=== PATIENT | male | born 1975 | race Caucasian/White ===

== ENCOUNTER 2020-06-27 18:21 | Emergency (ER) | payer BC ==
--- NOTE | 2020-06-27 20:51 | ER Document Report ---
ED Medical Screen (RME) - General Chief Complaint: Blood Pressure Problem Stated Complaint: HIGH BLOOD PRESSURE Time Seen by Provider: 06/27/20 20:48 Primary Care Provider: MARIA M QUINTERO PA-C [Primary Care Provider] - Follow up as needed Notes: Patient is a 45-year-old male with a history of hypertension who presents to the emergency department with a chief complaint of elevated blood pressure. Patient reports that he did speak with his primary care physician today who did increase the dosage of his lisinopril. He normally takes 20 mg/day which is been his dose for the past few years. Noticed that his blood pressures been elevated over the past week or so. She did increase the dosage to 40 mg/day which he did not start yet. His last dose of lisinopril was 20 mg at 1 PM this afternoon. He normally takes 20 mg at night. States he has a headache with his elevated blood pressure as well as right-sided neck pain. He reports the neck pain is been present for 1 week. TRAVEL OUTSIDE OF THE [place] IN LAST 30 DAYS: No - Related Data Allergies/Adverse Reactions: No Known Allergies Allergy (Unverified 06/27/20 20:34) Past Medical History - Social History Chew tobacco use (# tins/day): No Frequency of alcohol use: None Physical Exam - Vital signs Vitals: Temp 97.8 F 06/27/20 18:22 Course - Re-evaluation Re-evalutation: 06/27/20 20:50 Patient no acute distress. Blood pressure is in the 150s systolic. Patient speech is clear and appropriate. Patient is mentating normally. I have greeted and performed a rapid initial assessment of this patient. A comprehensive ED assessment and evaluation of the patient, analysis of test results and completion of the medical decision making process will be conducted by additional ED providers. - Vital Signs Vital signs: Temp Pulse Resp BP Pulse Ox 98.2 F 85 16 151/109 H 96 06/27/20 18:57 06/27/20 20:42 06/27/20 20:42 06/27/20 20:42 06/27/20 20:42 Doctor's Discharge - Discharge Referrals: MARIA M QUINTERO PA-C [Primary Care Provider] - Follow up as needed
[2020-06-27 21:33] LABS: ABSOLUTE EOSINOPHILS # (AUTO) 0.1 10^3/uL (0.0-0.6); ABSOLUTE LYMPHOCYTES (AUTO) 2.2 10^3/uL (0.5-4.7); ABSOLUTE MONOCYTES (AUTO) 0.5 10^3/uL (0.1-1.4); ABSOLUTE NEUT (AUTO) 4.5 10^3/uL (1.7-8.2); BASOPHILS % (AUTO) 0.6 % (0-2); HEMATOCRIT 46.5 % (37.9-51.0); HEMOGLOBIN 16.1 g/dL (13.5-17.0); LYMPHOCYTES % (AUTO) 29.8 % (13-45); MEAN CORPUSCULAR HEMOGLOBIN 29.3 pg (27.0-33.4); MEAN CORPUSCULAR HGB CONC 34.6 g/dL (32.0-36.0); MEAN CORPUSCULAR VOLUME 85 fl (80-97); MONOCYTES % (AUTO) 7.5 % (3-13); PLATELET COUNT 269 10^3/uL (150-450); RED BLOOD COUNT 5.49 10^6/uL (4.35-5.55); RED CELL DISTRIBUTION WIDTH 13.3 % (11.5-14.0); SEGMENTED NEUTROPHILS % (AUTO) 61.1 % (42-78); TOTAL CELLS COUNTED % (AUTO) 100 %; WHITE BLOOD COUNT 7.3 10^3/uL (4.0-10.5)
--- NOTE | 2020-06-27 21:34 | RADIOLOGY REPORT (SQ) ---
CLINICAL INDICATION: Right sided neck pain, elevated blood pressure. TECHNIQUE: PA and lateral views were obtained of the chest COMPARISON: None. FINDINGS: The cardiomediastinal silhouette is normal. The lungs are grossly clear. No evidence of effusion or pneumothorax. Visualized bones are unremarkable. . IMPRESSION: No evidence of active intrathoracic disease .
--- NOTE | 2020-06-27 21:37 | EKG REPORT ---
SEVERITY:- ABNORMAL ECG - SINUS RHYTHM BASELINE ARTIFACT.PROBABLY NORMAL EKG : Confirmed by: Kathie Nagel MD 27-Jun-2020 21:36:07
[2020-06-27 21:50] LABS: ALBUMIN 4.7 g/dL (3.5-5.0); ALKALINE PHOSPHATASE 86 U/L (38-126); ANION GAP 10 (5-19); ASPARTATE AMINO TRANSFERASE 20 U/L (17-59); BILIRUBIN,DIRECT 0.3 mg/dL (0.0-0.4); BILIRUBIN,TOTAL 0.6 mg/dL (0.2-1.3); BLOOD UREA NITROGEN 7 mg/dL (7-20); CALCIUM 9.4 mg/dL (8.4-10.2); CARBON DIOXIDE 26 mmol/L (22-30); CHLORIDE 107 mmol/L (98-107); GLUCOSE 100 mg/dL (75-110); POTASSIUM 4.2 mmol/L (3.6-5.0); TOTAL PROTEIN 7.5 g/dL (6.3-8.2)
--- NOTE | 2020-06-28 00:23 | ER Document Report ---
ED General - General Chief Complaint: Blood Pressure Problem Stated Complaint: HIGH BLOOD PRESSURE Time Seen by Provider: 06/27/20 20:48 Primary Care Provider: MARIA M QUINTERO PA-C [Primary Care Provider] - 06/30/20 TRAVEL OUTSIDE OF THE [place] IN LAST 30 DAYS: No - HPI Context: This is a 45-year-old male with a history of hypertension presenting to the emergency department today complaining of elevated blood pressure, fatigue and right-sided neck pain for approximately 1 week. Patient states he has been on 20 mg of lisinopril for several years now. Patient states he is noticed that he is had lately a sense of fatigue, weakness, occasional headaches not alleviated with aspirin. Patient states he is checked his blood pressure at home with a home blood pressure machine and states that the pressure is reading up to the 160s systolic at times. Patient states that he is not completely sure how reliable the blood pressure monitor is because sometimes he can get markedly different readings within 10 minutes of the original reading. Patient states he is mainly concerned that the fact his blood pressures been elevated and the fact that he is having neck pain may be related. Patient states that he spoke to his primary care provider earlier today and his provider stated that she would be increasing his lisinopril to 40 mg daily. She stated that he could take the 20 mg dose he usually takes at night sooner. Patient did this at approximately 1300 hrs. today. Patient was planning on taking the second dose of 20 mg tonight as he has in the past at bedtime. Patient states that he has not picked up his new prescription yet. Patient states that he just became worried about the possibility of something in his neck been associated with his blood pressure. Patient denies exceptional strenuous activity within the past 2 weeks. Patient states that his neck pain is basically right-sided and he localizes it in the region of his trapezius muscle. Patient states the pain is aching and rates it as a 3 out of 5. Patient states that the pain is worsened if he tilts his head to the left away from the right trapezius. Patient denies current headache, visual changes, nausea and vomiting, trouble with speech, difficulty with gait, chest pain or shortness of breath. Patient denies fever, chills, history of COVID-19 infection, recent contact with known positive COVID- 19 persons or persons under investigation per COVID. Associated symptoms: Other - See HPI Exacerbated by: Other - See HPI Relieved by: Other - See HPI - Related Data Allergies/Adverse Reactions: No Known Allergies Allergy (Unverified 06/27/20 20:34) Past Medical History - General Information source: Patient - Social History Smoking Status: Unknown if Ever Smoked Chew tobacco use (# tins/day): No Frequency of alcohol use: None Family History: Reviewed & Not Pertinent Patient has suicidal ideation: No Patient has homicidal ideation: No - Past Medical History Cardiac Medical History: Reports: Hx Hypertension Review of Systems - Review of Systems Constitutional: Weakness EENT: No symptoms reported Cardiovascular: No symptoms reported Respiratory: No symptoms reported Gastrointestinal: No symptoms reported Genitourinary: No symptoms reported Male Genitourinary: No symptoms reported Musculoskeletal: Neck pain Skin: No symptoms reported Hematologic/Lymphatic: No symptoms reported Neurological/Psychological: Headaches -: Yes All other systems reviewed and negative Physical Exam - Vital signs Vitals: Temp 97.8 F 06/27/20 18:22 - Notes Notes: CONSTITUTIONAL [Vital signs reviewed, Patient appears comfortable, Alert and oriented X 3, Normal stature.] HEAD [Atraumatic, Normocephalic.] EYES [Eyes are normal to inspection, No discharge from eyes, Extraocular muscles intact, Sclera are normal, Conjunctiva are normal. Pupils are equally round and reactive bilaterally] NECK [Patient's right trapezius is positive for moderate muscle spasm and tenderness to palpation, left trapezius by comparison feels supple. No jugular venous distention, No meningeal signs, no carotid bruit. There is no anterior neck swelling.] RESPIRATORY CHEST [Chest is nontender, Breath sounds normal, No respiratory distress.] CARDIOVASCULAR [RRR, No murmurs, Normal S1 S2, No rub, No gallop.] ABDOMEN [Abdomen is nontender, No pulsatile masses, No other masses, Bowel sounds normal, No distension, No peritoneal signs, No hernias.] BACK [There is no CVA Tenderness, There is no tenderness to palpation, Normal inspection.] UPPER EXTREMITY [Inspection normal, No cyanosis, No clubbing, No edema, 2+ radial pulses.] LOWER EXTREMITY [Inspection normal, No cyanosis, No clubbing, No edema, No calf tenderness, 2+ femoral pulses.] NEURO [No focal motor deficits, No focal sensory deficits, Speech normal.] SKIN [Skin is warm, Skin is dry, Skin is normal color.] LYMPHATIC [No adenopathy in neck.] PSYCHIATRIC [Normal affect. ] Course - Re-evaluation Re-evalutation: 06/28/20 00:27 Results of ED MSE discussed with patient. This MD offered to give patient the additional dose of lisinopril he is supposed to take this evening. Patient states he will just take his additional 20 mg dose of lisinopril when he gets home. All questions were answered prior to discharge. Emergency signs and symptoms, reasons to return to the emergency department discussed with patient. - Vital Signs Vital signs: Temp Pulse Resp BP Pulse Ox 98.2 F 85 16 151/109 H 96 06/27/20 18:57 06/27/20 20:42 06/27/20 20:42 06/27/20 20:42 06/27/20 20:42 - Laboratory Result Diagrams: 06/27/20 21:08 06/27/20 21:08 - Diagnostic Test Radiology reviewed: Reports reviewed - EKG Interpretation by Me Additional EKG results interpreted by me: 06/28/20 00:28 EKG obtained on 06/27/2020 at 2103 hrs. was interpreted by this MD. Findings: Normal sinus rhythm, rate 69, normal axis, RI interval appears within normal l imits, P waves preceding QRS complexes, QRS complexes appear narrow, QTC is 403, there is some baseline artifact in V1 and V2, otherwise there are no obvious patterns of ST segment elevation or depression present to suggest acute myocardial ischemia or infarction. Impression normal sinus rhythm with nonspecific ST segments. Discharge - Discharge Clinical Impression: Elevated blood pressure reading Strain of right trapezius muscle Qualifiers: Encounter type: initial encounter Qualified Code(s): S46.811A - Strain of other muscles, fascia and tendons at shoulder and upper arm level, right arm, initial encounter Condition: Stable Disposition: HOME, SELF-CARE Additional Instructions: Return to the Emergency Department without delay if any worse. 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 You can use cervical wraps for your right trapezius muscle strain as discussed. HOME CARE INSTRUCTIONS & INFORMATION: Thank you for choosing us for your medical needs. We hope you're satisfied with the care you received. After you leave, you must properly care for your problem and, at the same time, observe its progress. Any condition can change. Some illnesses can change rapidly over hours or days. If your condition worsens, return to the Emergency Department or see your physician promptly. ABOUT YOUR X-RAYS AND EKG'S: If you had an EKG or X-rays taken, they have been read by the Emergency Physician. The X-rays and EKG's will also be read by a Radiologist or Supervisor [employer] within 24 hours. If discrepancies are noted, you will be notified by telephone. Please be certain the ED has a correct telephone number & address where you can be reached. Also, realize that some fractures or abnormalities do not show up on initial X-rays. If your symptoms continue, see your physician. ABOUT YOUR LABORATORY TEST: If you had laboratory tests, the results have been reviewed by the Emergency Physician. Some test results (for example cultures) may not be available for several days. You will be contacted if any test result shows you need additional treatment. Please be certain the ED has a correct telephone number and address where you can be reached. ABOUT YOUR MEDICATIONS: You will receive instructions on how to take your medicine on the prescription label you receive. Additional information may be provided by the Pharmacy. If you have questions afterwards, call the ED for clarification or further instructions. Some prescribed medications may cause drowsiness. Do not perform tasks such as driving a car or operating machinery without consulting your Pharmacist. If you feel you need a refill of pain medication, your condition will need re-evaluation. Please do not call for a refill of any medication. ABOUT YOUR SIGNATURE: Signature of this document acknowledges to followin. Understanding that you received emergency treatment and that you may be released before al medical problems are known or treated. Please be certain the ED has a correct phone number & address where you can be reached. 2. Acknowledgement that you will arrange for follow-up care as recommended. 3. Authorization for the Emergency Physician to provide information to your follow-up Physician in order to maximize your care. AT ANY TIME, IF YOUR SYMPTOMS CHANGE SIGNIFICANTLY OR WORSEN OR YOU DEVELOP NEW SYMPTOMS, RETURN TO THE EMERGENCY DEPARTMENT IMMEDIATELY FOR RE-EVALUATION. OUR GOAL IS TO PROVIDE EXCELLENT MEDICAL CARE! WE HOPE THAT WE HAVE MET YOUR EXPECTATIONS DURING YOUR EMERGENCY DEPARTMENT VISIT AND THAT YOU FEEL YOU HAVE RECEIVED EXCELLENT CARE! Referrals: MARIA M QUINTERO PA-C [Primary Care Provider] - 06/30/20
[2020-06-28 00:52] VITALS: BP 124/92
== END 2020-06-28 01:09 | disposition home or self-care (01) ==
LOC: ER 18:21
DX: I10 Essential (primary) hypertension (principal); S29.012A Strain of muscle and tendon of back wall of thorax, initial encounter; X58.XXXA Exposure to other specified factors, initial encounter; M62.830 Muscle spasm of back; M54.2 Cervicalgia; R51 Headache; Z79.899 Other long term (current) drug therapy
CPT/HCPCS: 36415; 71046; 80053; 84484; 85025; 93005; 93010; 99285